=== PATIENT | female | born 1945 | race Asian ===

== ENCOUNTER 2017-10-29 19:35 | Emergency (ER) | payer OTHER ==
[2017-10-29] MEDS: BENOXINATE HCL/FLUORESCEIN SOD 5 ML OPHTH RIGHT EYE (22:11)
[2017-10-29] MEDS: OPHTHALMIC IRRIG SOLUTION 120 ML RIGHT EYE (22:34)
[2017-10-29] MEDS: DIPHTH/TET/ACEL PERTUSS (ADULT) 0.5 ML VIAL IM* (22:37)
[2017-10-29] MEDS: IBUPROFEN 600 MG TAB PO (22:49)
== END 2017-10-29 22:52 | disposition home or self-care (01) ==
LOC: FTE 19:35
DX: T15.91XA Foreign body on external eye, part unspecified, right eye, initial encounter (principal); X58.XXXA Exposure to other specified factors, initial encounter; Y92.9 Unspecified place or not applicable; Z23 Encounter for immunization; Z85.3 Personal history of malignant neoplasm of breast
CPT/HCPCS: 90471; 90715; 99283-25